=== PATIENT | male | born 1940 | race Caucasian/White ===

== ENCOUNTER 2018-07-07 14:02 | Outpatient (CLI) | payer MEDICARE, OTHER ==
--- NOTE | 2018-07-07 14:34 | XRAY Report ---
Reason: CHRONIC KIDNEY DISEASE, ST Procedure Date: 07/07/2018 Accession Number: [id number] / [id number] Procedure: XR - Chest 2 View X-Ray CPT Code: 77095 FULL RESULT: EXAM: CHEST RADIOGRAPHY EXAM DATE: 07/07/2018 02:15 PM. CLINICAL HISTORY: Chronic kidney disease. Rule out TB before starting dialysis. COMPARISON: None. TECHNIQUE: 2 views. FINDINGS: Lungs/Pleura: No focal opacities evident. No pleural effusion. No pneumothorax. Normal volumes. Mediastinum: Status post median sternotomy with aortic valve repair. Calcification of the aortic arch. Top normal size of the cardiac silhouette. Prominent pulmonary arteries. Other: None. IMPRESSION: No acute pulmonary abnormality. RADIA
== END 2018-07-07 14:03 | disposition home or self-care (01) ==
LOC: DI 14:02
PROVIDERS: ATTEND Internal Medicine Nephrology
DX: Z01.818 Encounter for other preprocedural examination (principal); N18.5 Chronic kidney disease, stage 5; D64.9 Anemia, unspecified
CPT/HCPCS: 36415; 71046; 80069; 85014; 86317; 86704; 87340

== ENCOUNTER 2019-07-21 11:45 | Outpatient (CLI) | payer MEDICARE, OTHER ==
--- NOTE | 2019-07-22 09:57 | XRAY Report ---
Reason: BRONCHITIS,COPD,DEPENDENCE ON RENAL DIALYSIS Procedure Date: 07/21/2019 Accession Number: [id number] / [id number] Procedure: XR - Chest 2 View X-Ray CPT Code: 58851 Final Report FULL RESULT: EXAM: CHEST RADIOGRAPHY EXAM DATE: 07/21/2019 12:28 PM. CLINICAL HISTORY: Bronchitis, COPD, dependence on renal dialysis. COMPARISON: CHEST 2 VIEW 07/07/2018 2:10 PM. TECHNIQUE: 2 views. FINDINGS: Lungs/Pleura: Borderline pulmonary vascular congestion and new small right pleural effusion is seen. New patchy small airspace opacity in the right upper lung is seen. Mild right basilar airspace disease is also noted, in part due to atelectasis from effusion. The left lung remains relatively clear. Mediastinum: Cardiac silhouette is mildly enlarged. Heart and mediastinal contours are notable for aortic calcification. Median sternotomy wires and prosthesis seen consistent with prior cardiac valve surgery. Other: None. IMPRESSION: 1. New borderline CHF/fluid overload. 2. New focal opacity right upper lung region, suspect small infiltrate. Recommend follow-up posttreatment radiograph in 6-8 weeks to document resolution. 3. New mild right pleural effusion and basilar airspace disease. Infiltrate in this area is not excluded. RADIA
== END 2019-07-21 11:46 | disposition home or self-care (01) ==
LOC: DI 11:45
PROVIDERS: ATTEND Family Medicine
DX: I50.9 Heart failure, unspecified (principal); J40 Bronchitis, not specified as acute or chronic; R91.8 Other nonspecific abnormal finding of lung field; J90 Pleural effusion, not elsewhere classified; J44.9 Chronic obstructive pulmonary disease, unspecified; Z99.2 Dependence on renal dialysis
CPT/HCPCS: 71046

== ENCOUNTER 2019-07-27 17:23 | Emergency (ER) | payer MEDICARE, OTHER ==
[2019-07-27 18:05] LABS: BASOPHILS % (AUTO) 0.4 %; EOSINOPHILS # (AUTO) 0.1 10^3/uL (0.0-0.7); EOSINOPHILS % (AUTO) 1.1 %; LYMPHOCYTES # (AUTO) 0.8 10^3/uL (1.5-3.5); LYMPHOCYTES % (AUTO) 10.4 %; MEAN CORPUSCULAR HEMOGLOBIN 31.9 pg (27.0-31.0); MEAN CORPUSCULAR HGB CONC 33.1 g/dL (32.0-36.0); MEAN CORPUSCULAR VOLUME 96.3 fL (80.0-94.0); MEAN PLATELET VOLUME 11.3 fL (7.4-11.4); MONOCYTES # (AUTO) 0.7 10^3/uL (0.0-1.0); MONOCYTES % (AUTO) 8.8 %; NEUTROPHILS # (AUTO) 5.9 10^3/uL (1.5-6.6); NEUTROPHILS % (AUTO) 78.8 %; PLT - PLATELET COUNT 123 10^3/uL (130-450); RED BLOOD COUNT 3.76 10^6/uL (4.70-6.10); RED CELL DISTRIBUTION WIDTH 15.8 % (12.0-15.0); WHITE BLOOD COUNT 7.5 x10^3/uL (4.8-10.8)
[2019-07-27 18:14] LABS: ALBUMIN 3.7 g/dL (3.2-5.5); BILIRUBIN,TOTAL 1.1 mg/dL (0.2-1.0); CALCIUM 9.3 mg/dL (8.5-10.3); CREATININE 3.8 mg/dL (0.6-1.2); TOTAL PROTEIN 7.5 g/dL (6.7-8.2)
[2019-07-27] MEDS ORDERED: IPRATROPIUM/ALBUTEROL 3 ML NEB INH STA (18:22)
--- NOTE | 2019-07-27 18:36 | XRAY Report ---
Reason: SOA Procedure Date: 07/27/2019 Accession Number: [id number] / [id number] Procedure: XR - Chest 1 View X-Ray CPT Code: 58273 Final Report FULL RESULT: EXAM: CHEST RADIOGRAPHY EXAM DATE: 07/27/2019 06:12 PM. CLINICAL HISTORY: Shortness of air. COMPARISON: CHEST 2 VIEW 07/21/2019 12:28 PM. TECHNIQUE: 1 view. FINDINGS: Cardiomegaly again noted. Mild to moderate diffuse bilateral airspace disease, left greater than right, increased compared to prior, could represent pulmonary edema. Pneumonia not excluded. Minimal bilateral pleural effusion suspected, decreased on the right. No pneumothorax. Left upper lobe nodular opacity measures 2.1 cm, increased compared to prior. Follow-up imaging is recommended. A follow-up chest CT could be obtained to further evaluate. Malignant pulmonary nodule is not excluded. Sternotomy wires. Cardiac valve prosthesis. IMPRESSION: Cardiomegaly again noted. Mild to moderate diffuse bilateral airspace disease, left greater than right, increased compared to prior, could represent pulmonary edema. Pneumonia not excluded. Minimal bilateral pleural effusion suspected, decreased on the right. No pneumothorax. Left upper lobe nodular opacity measures 2.1 cm, increased compared to prior. Follow-up imaging is recommended. A follow-up chest CT could be obtained to further evaluate. Malignant pulmonary nodule is not excluded. RADIA
[2019-07-27] MEDS ORDERED: FUROSEMIDE 40 MG/4 ML VIAL IVP STA ×2 (18:41→19:55)
--- NOTE | 2019-07-27 18:41 | ED Physician Documentation ---
PD HPI DYSPNEA - Stated complaint Stated Complaint: SHORTNESS OF BREATH - Chief complaint Chief Complaint: Resp - History obtained from History obtained from: Patient - History of Present Illness Timing - onset: How many weeks ago (2-3) Timing - onset during: Rest Timing - duration: Weeks (2-3) Timing - details: Gradual onset Pain level max: 0 Pain level now: 0 Improved by: Rest Worsened by: Exertion Associated symptoms: Wheezing. No: Fever, Cough, Hemoptysis, Chest pain / discomfort, Palpitations, Diaphoresis - Additional information Additional information: Patient has chronic renal failure, on hemodialysis Saturday and Saturday. Did 3 of his 4 hours today. States he just does not feel well. No chest pain. Review of Systems Ten Systems: 10 systems reviewed and negative Constitutional: denies: Fever, Chills Ears: denies: Ear pain Nose: denies: Rhinorrhea / runny nose, Congestion Throat: denies: Sore throat Cardiac: denies: Chest pain / pressure, Palpitations Respiratory: reports: Dyspnea, Cough, Wheezing GI: denies: Abdominal Pain, Nausea, Vomiting, Diarrhea Skin: denies: Rash Musculoskeletal: denies: Neck pain, Back pain Neurologic: denies: Focal weakness, Numbness PD PAST MEDICAL HISTORY - Past Medical History Past Medical History: Yes Respiratory: COPD Neuro: None Endocrine/Autoimmune: None GI: None : Dialysis, Renal insuffiency HEENT: None Psych: None Musculoskeletal: None Derm: None - Past Surgical History Past Surgical History: Yes Cardiovascular: Valve replacement, Other - Present Medications Home Medications: Ambulatory Orders Medication Instructions Recorded Confirmed Amoxicillin/Potassium Clav 1 tab PO DAILY 07/27/19 07/27/19 [Amox-Clav 875-125 mg Tablet] Atorvastatin Calcium 10 mg PO DAILY 07/27/19 07/27/19 Azithromycin [Zithromax] 250 mg PO DAILY 07/27/19 07/27/19 Cinacalcet HCl 30 mg PO DAILY 07/27/19 07/27/19 Folic Acid/Vit B Complex and C 0.8 mg PO DAILY 07/27/19 07/27/19 [Marely-Seda Tablet] Methoxy Peg-Epoetin Beta [Mircera] 30 mg ABBOJECT DAILY 07/27/19 07/27/19 Metoprolol Succinate [Toprol Xl] 100 mg PO DAILY 07/27/19 07/27/19 Ondansetron [Ondansetron Odt] 4 mg PO DAILY 07/27/19 07/27/19 Paricalcitol [Zemplar] 1 mcg PO DAILY 07/27/19 07/27/19 - Allergies Allergies/Adverse Reactions: Allergies Allergy/AdvReac Type Severity Reaction Status Date / Time No Known Drug Allergies Allergy Verified 07/27/19 17:34 - Social History Does the pt smoke?: Yes Smoking Status: Current some day smoker Does the pt drink ETOH?: No Does the pt have substance abuse?: No - Immunizations Immunizations are current?: Yes - POLST Patient has POLST: No PD ED PE NORMAL - Vitals Vital signs reviewed: Yes - General General: Alert and oriented X 3, Well developed/nourished, Other (Mild respiratory distress.) - HEENT HEENT: PERRL, Moist mucous membranes - Neck Neck: Supple, no meningeal sign - Cardiac Cardiac: RRR - Respiratory Respiratory: Other (Wheezing and crackles bilaterally with diminished breath sounds.) - Abdomen Abdomen: Soft, Non tender, Non distended - Derm Derm: Warm and dry - Extremities Extremities: No edema - Neuro Neuro: Alert and oriented X 3 - Psych Psych: Normal mood, Normal affect Results - Vitals Vitals: Vital Signs - 24 hr 07/27/19 07/27/19 07/27/19 17:34 18:32 19:42 Temperature 36.3 C L Heart Rate 84 79 75 Respiratory 32 H 24 22 Rate Blood Pressure 189/93 H 176/87 H O2 Saturation 89 L 94 07/27/19 21:00 Temperature Heart Rate 76 Respiratory 23 Rate Blood Pressure 180/91 H O2 Saturation 95 Oxygen O2 Source Nasal cannula Oxygen Flow Rate 3 - EKG (time done) 1749 Rate: Rate (enter#) Rhythm: NSR Intervals: LBBB - Labs Labs: Laboratory Tests 07/27/19 07/27/19 07/27/19 17:51 17:57 17:57 WBC 7.5 RBC 3.76 L Hgb 12.0 L Hct 36.2 L MCV 96.3 H MCH 31.9 H MCHC 33.1 RDW 15.8 H Plt Count 123 L MPV 11.3 Neut # (Auto) 5.9 Lymph # (Auto) 0.8 L Bollinger # (Auto) 0.7 Eos # (Auto) 0.1 Baso # (Auto) 0.0 Absolute Nucleated RBC 0.00 Nucleated RBC % 0.0 Sodium 134 L Potassium 3.6 Chloride 93 L Carbon Dioxide 29 Anion Gap 12.0 BUN 17 Creatinine 3.8 H Estimated GFR (MDRD) 16 L Glucose 122 H Calcium 9.3 Total Bilirubin 1.1 H AST 25 ALT 24 Alkaline Phosphatase 68 Troponin I High Sens B-Natriuretic Peptide 6440.00 H Total Protein 7.5 Albumin 3.7 Globulin 3.8 Albumin/Globulin Ratio 1.0 Lipase 54 H 07/27/19 07/27/19 17:57 20:00 WBC RBC Hgb Hct MCV MCH MCHC RDW Plt Count MPV Neut # (Auto) Lymph # (Auto) Bollinger # (Auto) Eos # (Auto) Baso # (Auto) Absolute Nucleated RBC Nucleated RBC % Sodium Potassium Chloride Carbon Dioxide Anion Gap BUN Creatinine Estimated GFR (MDRD) Glucose Calcium Total Bilirubin AST ALT Alkaline Phosphatase Troponin I High Sens 167.4 H* 171.2 H* B-Natriuretic Peptide Total Protein Albumin Globulin Albumin/Globulin Ratio Lipase - Rads (name of study) cxr Radiology: Prelim report reviewed, EMP read contemporaneously, See rad report (Cardiomegaly again noted. Mild to moderate diffuse bilateral airspace disease, left greater than right, increased compared to prior, could represent pulmonary edema. Pneumonia not excluded. Minimal bilateral pleural effusion suspected, decreased on the right. No pneumothorax. Left upper lobe nodular opacity measures 2.1 cm, increased compared to prior. Follow-up imaging is recommended. A follow-up chest CT could be obtained to further evaluate. Malignant pulmonary nodule is not excluded. ) PD MEDICAL DECISION MAKING - ED course Complexity details: reviewed old records, reviewed results, re-evaluated patient, considered differential, d/w patient, d/w medical consultant ED course: 79-year-old male with what appears to be new onset congestive heart failure with pulmonary edema and hypoxia. In the emergency department his O2 sat would drop to the mid 80s, 85-86 when he was not on oxygen. On 2 L of oxygen his O2 sat increases to 92-94. He states that he does have COPD but does not use inhalers or nebulizers at home. He has had his aortic valve replaced in the past. Denies any history of coronary artery disease. He does not have any chest pain. His BNP is significantly elevated. Given 100 mg of ice V Lasix here and did have urine output. Remains hypoxic. Discussed with his heating technician, but no next day dialysis is available. As he continues to be hypoxic, we will transfer him for further care. [facility] in [place] had no beds, [facility] had no beds, [facility] in [place] had no beds, [facility] had no beds. I contacted [facility]erv[facility] and Dr. Jimmy Chapman graciously accepts in transfer at approximately [phone]. COBRA forms completed. Patient does have a mildly elevated high-sensitivity troponin, no exchange clerk 2 hours. Suspect that this is chronic elevation. Likely also due to his congestive heart failure. I do not feel that this reflects an end STEMI. Patient transferred to [facility]. This document was made in part using voice recognition software. While efforts are made to proofread this document, sound alike and grammatical errors may occur. Departure - Departure Disposition: 02 Transfer Acute Care Hosp Clinical Impression: New onset of congestive heart failure, Hypoxia Pulmonary edema Qualifiers: Chronicity: acute Qualified Code(s): J81.0 - Acute pulmonary edema COPD (chronic obstructive pulmonary disease) Qualifiers: COPD type: unspecified COPD Qualified Code(s): J44.9 - Chronic obstructive pulmonary disease, unspecified Condition: Stable
[2019-07-27] MEDS ORDERED: FUROSEMIDE 20 MG/2 ML VIAL IVP STA (19:55)
[2019-07-28] VITALS: BP 179/93
== END 2019-07-28 00:41 | disposition short-term general hospital (02) ==
LOC: ED 17:23
DX: I50.1 Left ventricular failure, unspecified (principal); R09.02 Hypoxemia; J44.9 Chronic obstructive pulmonary disease, unspecified; N18.6 End stage renal disease; Z99.2 Dependence on renal dialysis; I44.7 Left bundle-branch block, unspecified; Z95.2 Presence of prosthetic heart valve; F17.200 Nicotine dependence, unspecified, uncomplicated
CPT/HCPCS: 36415; 71045; 80053; 83690; 83880; 84484; 85025; 93005; 94640; 96374; 96376; 99285

== ENCOUNTER 2019-07-28 00:40 | Outpatient (CLI) | payer MEDICARE | END 2019-07-28 00:41 | disposition short-term general hospital (02) | LOC: EMS 00:40 | PROVIDERS: ATTEND Surgery | DX: I50.9 Heart failure, unspecified (principal); R09.02 Hypoxemia; J81.1 Chronic pulmonary edema | CPT/HCPCS: A0425; A0429 ==